=== PATIENT | male | born 1990 | race Caucasian/White ===

== ENCOUNTER 2020-12-13 01:25 | Emergency (ER) | payer OTHER, SELFPAY ==
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
[2020-12-13 01:30] VITALS: BP 150/97; PULSE 102; RESP 18; TEMP 36.7; O2SAT 97; BMI 25.2
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
[2020-12-13 01:40] VITALS: BP 148/91; PULSE 91; RESP 18; TEMP 36.7; O2SAT 98
[2020-12-13] MEDS: Lidocaine HCl 2 % MPF 5 ML VIAL SUBCUT (01:46)
== END 2020-12-13 02:07 | disposition home or self-care (01) ==
LOC: HO.ED 01:43
PROVIDERS: Emergency Provider Emergency Medicine
DX: S61.411A Laceration without foreign body of right hand, initial encounter (principal); M79.641 Pain in right hand; Y28.9XXA Contact with unspecified sharp object, undetermined intent, initial encounter; Y93.9 Activity, unspecified; Y92.009 Unspecified place in unspecified non-institutional (private) residence as the place of occurrence of the external cause; Y99.9 Unspecified external cause status; Z63.79 Other stressful life events affecting family and household
CPT/HCPCS: 12002; 73120; 96372; 99284

== ENCOUNTER 2020-12-21 11:25 | Emergency (ER) | payer OTHER, SELFPAY ==
[2020-12-21 11:34] VITALS: BP 136/83; PULSE 89; RESP 18; TEMP 37.1; O2SAT 99; BMI 23.3
--- NOTE | 2020-12-21 12:49 | ED.WOUNDLAC ---
HPI - Wound/Laceration General Chief Complaint: Wound/Laceration Stated Complaint: suture removal rt hand Time Seen by Provider: 12/21/20 12:49 History of Present Illness HPI narrative: Patient presents for right hand suture removal after 9 days with no complaints Related Data Previous Rx's Medication Instructions Recorded clindamycin HCl 300 mg capsule 300 mg PO BID 7 Days #14 cap 12/22/20 Allergies Allergy/AdvReac Type Severity Reaction Status Date / Time No Known Allergies Allergy Verified 12/13/20 01:29 Review of Systems Review of Systems: No fever no chills no skin rash no redness no joint pain no numbness no weakness PMFSH Past Medical History Source: nursing notes reviewed Medical History Annual physical exam Family History Family History Mother No problems noted. Father No problems noted. Social History Social History Alcohol intake: current Alcohol intake frequency: a few times a week Alcohol type: beer Smoking Status: Current every day smoker Substance Use Type: Marijuana Physical Exam Vital Signs: Vital Signs: Last Vital Signs Temp 98.8 F 12/21/20 11:34 Pulse 89 12/21/20 11:34 Resp 18 12/21/20 11:34 BP 136/83 12/21/20 11:34 Pulse Ox 99 12/21/20 11:34 Body Mass Index 23.3 General appearance is no acute distress comfortable relax cooperative The neck is supple Respiratory no distress Extremities the right hand has sutures in place with no surrounding erythema no swelling no discharge no redness no red stripe up arm no sign of infection Neuro no focal deficit Skin no rash Course Course Course Narrative: Sutures are removed from right hand without any problems, no dehiscence no discharge from wound Discharge Plan Discharge Clinical Impression: Encounter for removal of sutures Patient Disposition: Home, Self-Care Additional Instructions: Sutures removed There is no sign of infection Return any time any concerns Prescriptions: No Action clindamycin HCl 300 mg capsule 300 mg PO BID 7 Days Qty: 14 RF: 0 Interventions: ED Discharge Assessment Last Done: 12/21/20 12:53 Discharge Date/Time: 12/21/20 12:54
== END 2020-12-21 12:54 | disposition home or self-care (01) ==
PROVIDERS: Emergency Provider Emergency Medicine; PCP Internal Medicine
DX: Z48.02 Encounter for removal of sutures (principal); S61.411D Laceration without foreign body of right hand, subsequent encounter; X58.XXXD Exposure to other specified factors, subsequent encounter
CPT/HCPCS: 99283

== ENCOUNTER 2024-11-05 03:09 | Emergency (ER) | payer OTHER, SELFPAY ==
[2024-11-05 03:06] VITALS: BP 116/74; BP 144/74; PULSE 65; PULSE 74; RESP 18; TEMP 36.9; O2SAT 99
[2024-11-05 03:09] VITALS: BMI 21.8
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
[2024-11-05] MEDS: Acetaminophen 325 MG TABLET 975 MG PO (03:44)
[2024-11-05] MEDS: Ibuprofen 600 MG TABLET PO (03:44)
[2024-11-05 03:48] VITALS: BP 116/74; PULSE 65; RESP 18; TEMP 36.9; O2SAT 99
== END 2024-11-05 03:49 ==
PROVIDERS: Emergency Provider Emergency Medicine
DX: S70.212A Abrasion, left hip, initial encounter (principal); S70.211A Abrasion, right hip, initial encounter; S60.511A Abrasion of right hand, initial encounter; S60.419A Abrasion of unspecified finger, initial encounter; S80.211A Abrasion, right knee, initial encounter; Y35.893A Legal intervention involving other specified means, suspect injured, initial encounter; Y93.9 Activity, unspecified; Y92.9 Unspecified place or not applicable; Y99.9 Unspecified external cause status
CPT/HCPCS: 99283; 99284